=== PATIENT | male | born 1980 | race Caucasian/White ===

== ENCOUNTER 2023-06-24 11:02 | Emergency (ER) | payer OTHER, BC ==
[2023-06-24] MEDS ORDERED: Naloxone 0.4 MG/ML SDV IVPUSH PRN (11:39)
[2023-06-24] MEDS: fentaNYL 50 MCG/ML SDV IVPUSH ONE ×3 (11:42→13:22)
[2023-06-24] MEDS: Sodium Chloride 0.9% 10 ML Syringe FLUSH PRN (11:50)
[2023-06-24] MEDS: ceFAZolin 2 GM in Premix Bag 1 BAG IV ONE (12:58)
[2023-06-24] MEDS: fentaNYL 50 MCG/ML SDV ONE (13:29)
== END 2023-06-24 14:13 ==
LOC: LL.ED 11:02
DX: S62.615B Displaced fracture of proximal phalanx of left ring finger, initial encounter for open fracture (principal); E66.9 Obesity, unspecified; Z68.32 Body mass index [BMI] 32.0-32.9, adult; W23.0XXA Caught, crushed, jammed, or pinched between moving objects, initial encounter; Y93.89 Activity, other specified; Y99.0 Civilian activity done for income or pay
CPT/HCPCS: 26755; 73130-LT; 96365; 96375; 96376; 99283; 99283-25; J0690; J3010; J3490